=== PATIENT | male | born 1935 | race Caucasian/White ===

== ENCOUNTER 2016-12-13 00:51 | Inpatient (IN) | payer MEDICARE, BC ==
[~2016-12-13] VITALS: Ht 180.3 cm; Wt 116.8 kg
[2016-12-13] MEDS ORDERED: LORazepam 2 MG/ML, 1ML ONE (01:16)
[2016-12-13] MEDS ORDERED: ONDANSETRON 2MG/ML, 2ML ONE ×2 (01:16→02:47)
[2016-12-13 01:26] LABS: HEMOGLOBIN 14.5 g/dL (13.7-18.0)
[2016-12-13] MEDS ORDERED: SODIUM CHLORIDE FLUSH 10ML SYR IVF ONE (01:30)
[2016-12-13] MEDS ORDERED: LORazepam 2 MG/ML, 1ML IVPush ONE ×2 (01:30→06:30)
[2016-12-13] MEDS ORDERED: SODIUM CHLORIDE 0.9% 1,000ML IVBOLUS ONE (01:30)
[2016-12-13] MEDS ORDERED: ONDANSETRON 2MG/ML, 2ML IVPush ONE ×2 (01:30→03:00)
[2016-12-13 01:39] LABS: ASPARTATE AMINO TRANSFERASE 199 U/L (15-37); BLOOD UREA NITROGEN 19 mg/dL (7-18)
[2016-12-13] MEDS ORDERED: FAMOTIDINE 20 MG/2 ML ONE (02:48)
[2016-12-13] MEDS ORDERED: HYDR10TA4 PO (02:55)
[2016-12-13] MEDS ORDERED: GABA300C10 PO (02:55)
[2016-12-13] MEDS ORDERED: LORA0.5T PO (02:55)
[2016-12-13] MEDS ORDERED: SERT100T5 PO (02:56)
[2016-12-13] MEDS ORDERED: FERR324T5 PO (02:56)
[2016-12-13] MEDS ORDERED: LOSA25TA5 PO (02:56)
[2016-12-13] MEDS ORDERED: OMEP-110 PO (02:58)
[2016-12-13] MEDS ORDERED: FAMOTIDINE 20 MG/2 ML IVP ONE (03:00)
[2016-12-13] MEDS ORDERED: SODIUM CHLORIDE 0.9% 1,000 ML IV SCH (03:05)
[2016-12-13] MEDS ORDERED: LABETALOL 5MG/ML, 20ML IV PRN (03:30)
[2016-12-13] MEDS ORDERED: DOCUSATE 100 MG CAPSULE PO PRN (03:30)
[2016-12-13] MEDS ORDERED: POLYETHYLENE GLYCOL 17 GM PACKET PO PRN (03:30)
[2016-12-13] MEDS ORDERED: TRAZODONE 50MG TABLET PO PRN (03:30)
[2016-12-13] MEDS ORDERED: BISACODYL 10 MG SUPP PR PRN (03:30)
[2016-12-13] MEDS ORDERED: ONDANSETRON ODT 4 MG PO PRN (03:30)
[2016-12-13] MEDS ORDERED: MORPHINE SULFATE 4 MG/ML, 1ML IVPush PRN (03:30)
[2016-12-13 03:37] VITALS: BP 167/92
[2016-12-13 05:10] LABS: HEPATITIS C VIRUS ANTIBODY Nonreactive (Nonreactive)
[2016-12-13 06:45] VITALS: BP 141/77
[2016-12-13] MEDS ORDERED: hydrALAzine 20 MG/ML, 1ML IV PRN (09:00)
[2016-12-13] MEDS ORDERED: LORazepam 0.5MG TABLET PO SCH (09:00)
[2016-12-13] MEDS ORDERED: hydrOXyzine 10MG TABLET PO SCH (09:00)
[2016-12-13] MEDS: LOSARTAN 25MG TABLET PO SCH (10:53)
[2016-12-13] MEDS: GABAPENTIN 300 MG CAPSULE PO SCH ×3 (10:53→20:19)
[2016-12-13] MEDS: SERTRALINE 100MG TABLET PO SCH (10:53)
[2016-12-13] MEDS: FERROUS SULFATE 325 MG TABLET PO SCH (10:53)
[2016-12-13] MEDS: OMEPRAZOLE 20 MG CAPSULE.DR PO SCH (10:53)
[2016-12-13] MEDS: ENOXAPARIN 40 MG/0.4 ML SQ SCH (10:54)
[2016-12-13 13:01] VITALS: BP 154/81
[2016-12-13 18:33] VITALS: BP 136/78
[2016-12-13] MEDS: SODIUM CHLORIDE 0.9% 1,000 ML IV SCH (20:22)
[2016-12-14 02:14] VITALS: BP 127/82
[2016-12-14] MEDS: SODIUM CHLORIDE 0.9% 1,000 ML IV SCH ×2 (04:34→15:25)
[2016-12-14 06:04] LABS: HEMOGLOBIN 12.7 g/dL (13.7-18.0)
[2016-12-14 06:13] LABS: BLOOD UREA NITROGEN 13 mg/dL (7-18)
[2016-12-14 06:18] LABS: ASPARTATE AMINO TRANSFERASE 144 U/L (15-37)
[2016-12-14 07:05] VITALS: BP 137/80
[2016-12-14] MEDS: SERTRALINE 100MG TABLET PO SCH (08:24)
[2016-12-14] MEDS: FERROUS SULFATE 325 MG TABLET PO SCH (08:24)
[2016-12-14] MEDS: OMEPRAZOLE 20 MG CAPSULE.DR PO SCH ×2 (08:25→17:18)
[2016-12-14] MEDS: ENOXAPARIN 40 MG/0.4 ML SQ SCH (08:26)
[2016-12-14] MEDS: GABAPENTIN 300 MG CAPSULE PO SCH ×3 (08:26→21:55)
[2016-12-14] MEDS: LOSARTAN 25MG TABLET PO SCH (08:31)
[2016-12-14] MEDS ORDERED: HYDR25CA94 PO (08:51)
[2016-12-14 13:10] VITALS: BP 140/77
[2016-12-14] MEDS: SUCRALFATE 1 GM/10 ML UDC PO SCH ×2 (17:08→21:55)
[2016-12-14 18:35] VITALS: BP 132/78
[2016-12-14] MEDS ORDERED: LORazepam 0.5MG TABLET PO SCH (21:00)
[2016-12-14] MEDS ORDERED: hydrOXyzine 10MG TABLET PO SCH (21:00)
[2016-12-15 01:07] VITALS: BP 121/71
[2016-12-15 06:05] LABS: BLOOD UREA NITROGEN 11 mg/dL (7-18)
[2016-12-15 06:11] LABS: ASPARTATE AMINO TRANSFERASE 102 U/L (15-37)
[2016-12-15 06:55] VITALS: BP 145/84
[2016-12-15] MEDS: SUCRALFATE 1 GM/10 ML UDC PO SCH ×2 (08:14→11:57)
[2016-12-15] MEDS: SERTRALINE 100MG TABLET PO SCH (08:15)
[2016-12-15] MEDS: FERROUS SULFATE 325 MG TABLET PO SCH (08:16)
[2016-12-15] MEDS: LOSARTAN 25MG TABLET PO SCH (08:16)
[2016-12-15] MEDS: GABAPENTIN 300 MG CAPSULE PO SCH (08:17)
[2016-12-15] MEDS: OMEPRAZOLE 20 MG CAPSULE.DR PO SCH (08:17)
[2016-12-15] MEDS: ENOXAPARIN 40 MG/0.4 ML SQ SCH (08:18)
[2016-12-15] MEDS: SODIUM CHLORIDE 0.9% 1,000 ML IV SCH (09:00)
[2016-12-15] MEDS ORDERED: MULT400T7 PO (11:58)
[2016-12-15] MEDS ORDERED: THIA100T10 PO (11:58)
[2016-12-15] MEDS ORDERED: Ondansetron PO (11:58)
[2016-12-15] MEDS ORDERED: SUCR1ORA2 PO (11:58)
[2016-12-15] MEDS ORDERED: MAGN400T7 PO (11:58)
[2016-12-15] MEDS ORDERED: FOLI-17 PO (11:58)
[2016-12-15] MEDS ORDERED: GABA300C10 PO (11:58)
[2016-12-15] MEDS ORDERED: TRAM-28 PO ×2 (12:00→12:01)
[2016-12-15 13:23] VITALS: BP 134/85
== END 2016-12-15 14:00 | disposition home or self-care (01) | DRG 441 ==
LOC: ED 02:49 → EDIP 02:52 → 3NE 03:10 → DCLOUNGE 12-15 13:40
PROVIDERS: ADMIT Internal Medicine; ATTEND Internal Medicine
DX: K72.00 Acute and subacute hepatic failure without coma (principal); K85.90 Acute pancreatitis without necrosis or infection, unspecified; E43 Unspecified severe protein-calorie malnutrition; E87.1 Hypo-osmolality and hyponatremia; B17.9 Acute viral hepatitis, unspecified; K21.9 Gastro-esophageal reflux disease without esophagitis; F43.10 Post-traumatic stress disorder, unspecified; D50.9 Iron deficiency anemia, unspecified; E86.0 Dehydration; I10 Essential (primary) hypertension; Z68.35 Body mass index [BMI] 35.0-35.9, adult; Z90.49 Acquired absence of other specified parts of digestive tract; Z90.89 Acquired absence of other organs; Z88.5 Allergy status to narcotic agent; Z88.6 Allergy status to analgesic agent; Z88.0 Allergy status to penicillin; Z80.41 Family history of malignant neoplasm of ovary
CPT/HCPCS: 36415; 74181; 76700; 80053; 80074; 82247; 82248; 83010; 83615; 83690; 85025; 85045; 87324; 93005; 96361; 96374; 96375; 96376; J1650; J2405; J2060; J7030; Q0177; S0028

== ENCOUNTER → 2017-06-30 | Outpatient (CLI) | payer OTHER, MEDICARE, BC ==
[~2017-06-30] MED LIST: FERR324T5 PO; FOLI-17 PO; GABA300C10 PO; HYDR10TA4 PO; HYDR25CA94 PO; LORA0.5T PO; LOSA25TA5 PO; MAGN400T7 PO; MULT400T7 PO; OMEP-110 PO; Ondansetron PO; SERT100T5 PO; SUCR1ORA5 PO; THIA100T10 PO; TRAM-47 PO
== END | disposition home or self-care (01) ==
LOC: PETCFH 07:49
PROVIDERS: ATTEND Internal Medicine
DX: R10.9 Unspecified abdominal pain (principal); R68.89 Other general symptoms and signs; I10 Essential (primary) hypertension; E78.2 Mixed hyperlipidemia; K21.9 Gastro-esophageal reflux disease without esophagitis
CPT/HCPCS: 78226; A9537

== ENCOUNTER → 2018-03-25 | Outpatient (CLI) | payer MEDICARE, BC ==
[~2018-03-25] MED LIST changes: +REGADENOSON 0.4 MG/5 ML SYRINGE ONE
== END | disposition home or self-care (01) ==
LOC: CFH 07:39
PROVIDERS: ATTEND Internal Medicine
DX: Z01.818 Encounter for other preprocedural examination (principal); I25.89 Other forms of chronic ischemic heart disease; I44.0 Atrioventricular block, first degree; I25.2 Old myocardial infarction
CPT/HCPCS: 78452; 93017; A9502; J2785

== ENCOUNTER 2018-05-04 00:23 | Inpatient (IN) | payer BC, MEDICARE, OTHER ==
[~2018-05-04] VITALS: Ht 177.8 cm; Wt 104.6 kg
[~2018-05-04 00:23] MED LIST changes: -LOSA25TA5 PO; +LOSA25TA6 PO; -REGADENOSON 0.4 MG/5 ML SYRINGE ONE
[2018-05-04] MEDS ORDERED: SODIUM CHLORIDE FLUSH 10ML SYR IVF ONE (00:30)
[2018-05-04 00:51] LABS: BASOPHILS # (AUTO) 0.14 x10^3/uL (0-0.1); BASOPHILS % (AUTO) 1 % (0-1); EOSINOPHILS # (AUTO) 0.21 x10^3/uL (0-0.4); EOSINOPHILS % (AUTO) 2 % (1-7); LYMPHOCYTES # (AUTO) 3.97 x10^3/uL (1-3.4); LYMPHOCYTES % (AUTO) 38 % (22-44); MD NO; MEAN CORPUSCULAR HGB CONC 33.7 g/dL (33.2-36.2); MEAN CORPUSCULAR VOLUME 97.8 fL (81-97); MEAN PLATELET VOLUME 8.7 fL (7.4-10.4); MONOCYTES # (AUTO) 1.15 x10^3/uL (0.2-0.8); MONOCYTES % (AUTO) 11 % (2-9); NEUTROPHILS # (AUTO) 4.98 x10^3/uL (1.8-6.8); NEUTROPHILS % (AUTO) 48 % (42-75); PLATELET COUNT 200 x10^3/uL (130-400); RED CELL DISTRIBUTION WIDTH 14.2 % (9.4-14.8)
[2018-05-04 00:59] LABS: INTERNATIONAL NORMALIZED RATIO 1.05 (0.93-1.1); PROTHROMBIN TIME 10.8 Seconds (9.6-11.5)
[2018-05-04 01:01] LABS: ALBUMIN 2.9 g/dL (3.4-5.0); ANION GAP 6 mmol/L (5-15); CALCIUM 8.6 mg/dL (8.5-10.1); CHLORIDE 109 mmol/L (98-107)
[2018-05-04] MEDS ORDERED: ASPI-621 PO (01:02)
[2018-05-04] MEDS ORDERED: CETI5TAB5 PO (01:02)
[2018-05-04] MEDS ORDERED: SERT50TA5 PO (01:02)
[2018-05-04 01:05] LABS: TROPONIN I < 0.015 ng/mL (0.000-0.045)
[2018-05-04] MEDS ORDERED: SODIUM CHLORIDE FLUSH 10ML SYR IVF PRN (01:30)
[2018-05-04 02:27] VITALS: BP 114/69
[2018-05-04] MEDS ORDERED: SODIUM CHLORIDE 0.9% 1,000 ML IV SCH (02:49)
[2018-05-04] MEDS ORDERED: ONDANSETRON 2MG/ML, 2ML IVPush PRN (03:00)
[2018-05-04] MEDS ORDERED: PROMETHAZINE 25 MG/ML, 1ML IM PRN (03:00)
[2018-05-04] MEDS ORDERED: NITROGLYCERIN 0.4 MG BOTTLE (25 TABS) SL PRN (03:00)
[2018-05-04] MEDS ORDERED: POLYETHYLENE GLYCOL 17 GM PACKET PO PRN (03:00)
[2018-05-04] MEDS: GABAPENTIN 300 MG CAPSULE PO SCH ×4 (03:00→20:56)
[2018-05-04] MEDS ORDERED: BISACODYL 10 MG SUPP PR PRN (03:00)
[2018-05-04] MEDS ORDERED: ONDANSETRON ODT 4 MG PO PRN (03:00)
[2018-05-04] MEDS ORDERED: DOCUSATE 100 MG CAPSULE PO PRN (03:00)
[2018-05-04] MEDS ORDERED: morphine SULFATE 10 MG/ML, 1ML IVPush PRN (03:00)
[2018-05-04] MEDS ORDERED: LABETALOL 5MG/ML, 20ML IVPush PRN (03:00)
[2018-05-04] MEDS ORDERED: hydrALAzine 20 MG/ML, 1ML IVPush PRN (03:00)
[2018-05-04 03:43] LABS: FREE T4 (FREE THYROXINE) 0.79 ng/dL (0.76-1.46); THYROID STIMULATING HORMONE 4.81 mIU/L (0.358-3.740)
[2018-05-04 03:49] LABS: HEMOGLOBIN A1C 5.7 % (4.2-6.3)
[2018-05-04] MEDS: HEPARIN 5,000 UNITS/ML, 1ML SQ SCH ×3 (04:04→20:56)
[2018-05-04] MEDS: ASPIRIN 325 MG TABLET EC PO SCH (04:05)
[2018-05-04 05:52] LABS: TROPONIN I 0.017 ng/mL (0.000-0.045)
[2018-05-04 06:45] VITALS: BP 119/59
[2018-05-04] MEDS: SERTRALINE 100MG TABLET PO SCH (09:20)
[2018-05-04] MEDS: OMEPRAZOLE 20 MG CAPSULE.DR PO SCH (09:21)
[2018-05-04] MEDS: CETIRIZINE 10 MG TABLET PO SCH (09:21)
[2018-05-04] MEDS: FERROUS SULFATE 325 MG TABLET PO SCH (09:22)
[2018-05-04 10:52] LABS: MICROSCOPIC NOT IND
[2018-05-04 11:02] LABS: CULTURE INDICATED? NO
[2018-05-04] MEDS ORDERED: ERGOCALCIFEROL 50,000 UNIT CAPSULE PO SCH (12:00)
[2018-05-04 13:16] VITALS: BP 129/63
[2018-05-04] MEDS ORDERED: MIDAZOLAM 1 MG/ML, 5ML ONE (13:20)
[2018-05-04] MEDS ORDERED: VERAPAMIL 2.5 MG/ML, 2ML ONE (13:21)
[2018-05-04] MEDS ORDERED: FENTANYL PF 100 MCG/2ML ONE (13:21)
[2018-05-04] MEDS ORDERED: HEPARIN 1,000 UNITS/ML, 10ML ONE (13:21)
[2018-05-04] MEDS ORDERED: DIPHENHYDRAMINE 50 MG/ML, 1ML ONE (13:21)
[2018-05-04] MEDS ORDERED: TICAGRELOR 90 MG TABLET ONE (14:32)
[2018-05-04] MEDS ORDERED: BIVALIRUDIN 250 MG ONE (14:32)
[2018-05-04] MEDS: SODIUM CHLORIDE 0.9% 1,000 ML IV SCH ×2 (15:30→22:54)
[2018-05-04 18:44] VITALS: BP 119/73
[2018-05-04] MEDS ORDERED: hydrOXyzine 10MG TABLET PO SCH (21:00)
[2018-05-04] MEDS ORDERED: SERTRALINE 50MG TABLET PO SCH (21:00)
[2018-05-05 00:48] VITALS: BP 134/74
[2018-05-05] MEDS: HEPARIN 5,000 UNITS/ML, 1ML SQ SCH (04:28)
[2018-05-05] MEDS: ASPIRIN 325 MG TABLET EC PO SCH (04:28)
[2018-05-05 05:31] LABS: BASOPHILS # (AUTO) 0.04 x10^3/uL (0-0.1); BASOPHILS % (AUTO) 0 % (0-1); EOSINOPHILS # (AUTO) 0.21 x10^3/uL (0-0.4); EOSINOPHILS % (AUTO) 2 % (1-7); LYMPHOCYTES # (AUTO) 3.07 x10^3/uL (1-3.4); LYMPHOCYTES % (AUTO) 29 % (22-44); MD NO; MEAN CORPUSCULAR HEMOGLOBIN 32.3 pg (27.5-34.5); MEAN CORPUSCULAR HGB CONC 33.2 g/dL (33.2-36.2); MEAN CORPUSCULAR VOLUME 97.5 fL (81-97); MEAN PLATELET VOLUME 8.9 fL (7.4-10.4); MONOCYTES # (AUTO) 0.92 x10^3/uL (0.2-0.8); MONOCYTES % (AUTO) 9 % (2-9); NEUTROPHILS # (AUTO) 6.24 x10^3/uL (1.8-6.8); NEUTROPHILS % (AUTO) 60 % (42-75); PLATELET COUNT 181 x10^3/uL (130-400); RED BLOOD COUNT 4.45 x10^6/uL (4.38-5.82)
[2018-05-05 05:37] LABS: ALBUMIN 2.6 g/dL (3.4-5.0); ANION GAP 4 mmol/L (5-15); CALCIUM 7.5 mg/dL (8.5-10.1); CHLORIDE 110 mmol/L (98-107)
[2018-05-05 05:44] LABS: ALANINE AMINOTRANSFERASE 13 U/L (12-78); ALKALINE PHOSPHATASE 52 U/L (45-117); BILIRUBIN,TOTAL 0.8 mg/dL (0.2-1.0); CHOL/HDL RATIO 4.4; CHOLESTEROL, TOTAL 115 mg/dL (140-239); CREATININE 1.08 mg/dL (0.7-1.3); HDL CHOL % 23 % (26-37); HDL CHOLESTEROL (DIRECT) 26 mg/dL (40-60); LDL CHOLESTEROL,CALCULATED 69 mg/dL (54-169); LDL/HDL RATIO 2.7 (0.5-3.0); TOTAL PROTEIN 6.1 g/dL (6.4-8.2); TRIGLYCERIDES 98 mg/dL (50-200); VLDL CHOLESTEROL 20 mg/dL (0-25)
[2018-05-05] MEDS: SODIUM CHLORIDE 0.9% 1,000 ML IV SCH (07:11)
[2018-05-05 07:13] VITALS: BP_SYST 118; BP_SYST 136; BP_DIAS 69; BP_DIAS 80
[2018-05-05] MEDS ORDERED: ISOSORBIDE MONONITRATE ER 30 MG TABLET PO SCH (09:00)
[2018-05-05] MEDS: OMEPRAZOLE 20 MG CAPSULE.DR PO SCH (09:14)
[2018-05-05] MEDS: SERTRALINE 100MG TABLET PO SCH (09:14)
[2018-05-05] MEDS: FERROUS SULFATE 325 MG TABLET PO SCH (09:14)
[2018-05-05] MEDS: GABAPENTIN 300 MG CAPSULE PO SCH (09:14)
[2018-05-05] MEDS: CETIRIZINE 10 MG TABLET PO SCH (09:17)
[2018-05-05] MEDS ORDERED: ISOS30TA8 PO (10:46)
[2018-05-05] MEDS ORDERED: NITR0.4T SL (10:46)
[2018-05-05] MEDS ORDERED: ERGO500017 PO (10:46)
[2018-05-05] MEDS ORDERED: ATOR40TA78 PO (10:46)
[2018-05-05] MEDS ORDERED: ASPI-621 PO (10:46)
[2018-05-05] MEDS ORDERED: ATORVASTATIN 40 MG TABLET PO SCH (21:00)
[2018-05-06] MEDS ORDERED: ASPIRIN 81 MG TABLET EC PO SCH (06:00)
== END 2018-05-05 12:00 | disposition home or self-care (01) | DRG 286 ==
LOC: ED 00:51 → EDIP 01:25 → 5SO 02:20 → DCLOUNGE 05-05 11:44
PROVIDERS: ADMIT Internal Medicine; ATTEND Internal Medicine
PROC: 4A023N7 Measurement of Cardiac Sampling and Pressure, Left Heart, Percutaneous Approach (ICD-10-PCS; principal; 2018-05-04)
PROC: B2111ZZ Fluoroscopy of Multiple Coronary Arteries using Low Osmolar Contrast (ICD-10-PCS; 2018-05-04)
PROC: B2151ZZ Fluoroscopy of Left Heart using Low Osmolar Contrast (ICD-10-PCS; 2018-05-04)
PROC: 5A2204Z Restoration of Cardiac Rhythm, Single (ICD-10-PCS; 2018-05-04)
DX: I25.110 Atherosclerotic heart disease of native coronary artery with unstable angina pectoris (principal); I49.01 Ventricular fibrillation; E44.0 Moderate protein-calorie malnutrition; I25.82 Chronic total occlusion of coronary artery; I25.5 Ischemic cardiomyopathy; E78.5 Hyperlipidemia, unspecified; E55.9 Vitamin D deficiency, unspecified; D50.9 Iron deficiency anemia, unspecified; K21.9 Gastro-esophageal reflux disease without esophagitis; F43.10 Post-traumatic stress disorder, unspecified; I10 Essential (primary) hypertension; Z87.891 Personal history of nicotine dependence; Z68.33 Body mass index [BMI] 33.0-33.9, adult; Z90.49 Acquired absence of other specified parts of digestive tract; Z90.89 Acquired absence of other organs; Z88.6 Allergy status to analgesic agent; Z88.1 Allergy status to other antibiotic agents; Z88.0 Allergy status to penicillin
CPT/HCPCS: 36415; 71045; 80048; 80053; 80061; 81003; 82040; 82306; 82607; 83036; 83735; 83880; 84439; 84443; 84484; 85025; 85610; 85730; 92920; 93005; 93306; 93458; 99156; 99157; 99285; C1894; G0378; J0583; J1644; J2250; J3010; 92928; C1769; C1887; J1200; J7030; Q9967